=== PATIENT | female | born 1970 | race Caucasian/White ===

== ENCOUNTER 2025-03-18 20:44 | Emergency (ER) | payer MEDICAID ==
[~2025-03-18] VITALS: Ht 167.6 cm; Wt 72.0 kg
[2025-03-18 21:07] VITALS: O2SAT 96
[2025-03-18 21:11] VITALS: BP 149/91; PULSE 86; RESP 18; TEMP 36.8; O2SAT 100
== END 2025-03-19 02:05 | disposition left against medical advice (07) ==
LOC: ER 20:44
DX: S52.122A Displaced fracture of head of left radius, initial encounter for closed fracture (principal); Z53.21 Procedure and treatment not carried out due to patient leaving prior to being seen by health care provider; X58.XXXA Exposure to other specified factors, initial encounter; Y93.89 Activity, other specified; Y92.89 Other specified places as the place of occurrence of the external cause; Y99.8 Other external cause status
CPT/HCPCS: 71101; 73080; 99281